=== PATIENT | female | born 1955 | race Caucasian/White ===

== ENCOUNTER 2020-05-08 23:55 | Inpatient (IN) | payer BC ==
[~2020-05-08] VITALS: Ht 157.5 cm; Wt 63.5 kg
[2020-05-09] MEDS ORDERED: DOPAMINE/D5W PMX 400 MG/250 ML ONE
--- NOTE | 2020-05-09 | NUR ---
Code cardiac called @ 2348 Called cardiology @ 2358 Cardiology called back @ [address] Carrasco
[2020-05-09] MEDS ORDERED: ASPIRIN 325 MG TABLET PO STA (00:01)
--- NOTE | 2020-05-09 00:10 | NUR ---
2355. PT ARRIVED TO ED. 2357. 324MG ASA GIVEN PO. EKG COMPLETED. 0005. , TALIA, AT BS. 0010. PT STATED ON DOPAMINE GTT. 0011. DR SHAFER AT BS.
[2020-05-09 00:14] LABS: BASOPHILS % (AUTO) 1 % (0-1); EOSINOPHILS % (AUTO) 1 % (1-7); LYMPHOCYTES % (AUTO) 26 % (22-44); MEAN CORPUSCULAR HEMOGLOBIN 30.4 pg (27.0-34.8); MEAN CORPUSCULAR HGB CONC 33.5 g/dL (32.4-35.8); MEAN PLATELET VOLUME 9.5 fL (7.4-10.4); MONOCYTES % (AUTO) 3 % (2-9); NEUTROPHILS % (AUTO) 69 % (42-75); PLATELET COUNT 195 x10^3/uL (130-400); RED BLOOD COUNT 4.59 x10^6/uL (3.82-5.3); RED CELL DISTRIBUTION WIDTH 12.9 % (9.6-15.2)
[2020-05-09 00:15] LABS: MD NO
[2020-05-09] MEDS ORDERED: HEPARIN 5,000 UNITS/ML, 1ML ONE (00:15)
[2020-05-09] MEDS ORDERED: HEPARIN 25,000 UNITS/250ML PMX 250 ML ONE (00:15)
[2020-05-09] MEDS ORDERED: ONDANSETRON 2MG/ML, 2ML ONE (00:17)
--- NOTE | 2020-05-09 00:18 | NUR ---
CARDS AT BS, VO TO HOLD HEPARIN. PT VOMITING. VO FOR ZOFRAN.
[2020-05-09] MEDS ORDERED: MIDAZOLAM 1 MG/ML, 5ML ONE (00:19)
[2020-05-09] MEDS ORDERED: BIVALIRUDIN 250 MG ONE (00:19)
[2020-05-09] MEDS ORDERED: VERAPAMIL 2.5 MG/ML, 2ML ONE (00:19)
[2020-05-09] MEDS ORDERED: FENTANYL PF 100 MCG/2ML ONE (00:19)
[2020-05-09] MEDS ORDERED: HEPARIN 1,000 UNITS/ML, 10ML ONE (00:20)
[2020-05-09] MEDS ORDERED: LIDOCAINE 2%, 20ML ONE (00:20)
--- NOTE | 2020-05-09 00:20 | NUR ---
HOLDING DOPAMINE GTT PER VO OF CARDIOLOGY.
--- NOTE | 2020-05-09 00:21 | NUR ---
CODE STEMI CANCELLED AT THIS TIME
--- NOTE | 2020-05-09 00:22 | NUR ---
Cancel code cardiac per interventionalist.
[2020-05-09 00:26] LABS: INTERNATIONAL NORMALIZED RATIO 0.95 (0.93-1.1); PROTHROMBIN TIME 10.2 Seconds (9.6-11.5)
[2020-05-09 00:29] LABS: TROPONIN I < 0.015 ng/mL (0.000-0.045)
[2020-05-09] MEDS ORDERED: DOPAMINE/D5W PMX 250 ML IV PRN (00:30)
[2020-05-09] MEDS ORDERED: HEPARIN 5,000 UNITS/ML, 1ML IV PRN (00:30)
[2020-05-09] MEDS ORDERED: BISACODYL 10 MG SUPP PR PRN (00:30)
[2020-05-09] MEDS ORDERED: hydrALAzine 20 MG/ML, 1ML IVPush PRN (00:30)
[2020-05-09] MEDS ORDERED: HEPARIN 25,000 UNITS/250ML PMX 250 ML IV PRN (00:30)
[2020-05-09] MEDS ORDERED: DOCUSATE 100 MG CAPSULE PO PRN (00:30)
[2020-05-09] MEDS ORDERED: PROMETHAZINE 25 MG/ML, 1ML IM PRN (00:30)
[2020-05-09] MEDS ORDERED: morphine SULFATE 10 MG/ML, 1ML IVPush PRN (00:30)
[2020-05-09] MEDS ORDERED: OXYcodone IR 5MG TABLET PO PRN (00:30)
[2020-05-09] MEDS ORDERED: POLYETHYLENE GLYCOL 17 GM PACKET PO PRN (00:30)
[2020-05-09] MEDS ORDERED: ONDANSETRON ODT 4 MG PO PRN (00:30)
[2020-05-09] MEDS ORDERED: HEPARIN 5,000 UNITS/ML, 1ML IV ONE (00:30)
[2020-05-09] MEDS ORDERED: ONDANSETRON 2MG/ML, 2ML IVPush PRN (00:30)
[2020-05-09] MEDS ORDERED: PLEASE ENTER ALLERGIES MC SCH (00:30)
[2020-05-09 00:48] LABS: PARTIAL THROMBOPLASTIN TIME < 23 Seconds (25-31)
--- NOTE | 2020-05-09 00:49 | NUR ---
PT TAKEN TO CT SCAN WITH RN ESCORT. PT TOLERATED SCAN AND CTA. IV SITE INTACT AND SOFT AND FLAT. NO DISTRESS. PT REMAINS ON CR MONITOR THROUGHOUT. PT BACK TO ROOM AFTER CTA, AND PTS AT BEDSIDE.
[2020-05-09] MEDS ORDERED: OMNIPAQUE 350 MG/ML, 100ML BOTTLE ONE (00:53)
[2020-05-09] MEDS ORDERED: ASPIRIN 81 MG TABLET CHEW ONE (00:55)
[2020-05-09 01:01] LABS: FREE T4 (FREE THYROXINE) 0.97 ng/dL (0.76-1.46)
--- NOTE | 2020-05-09 02:00 | NUR ---
REPORT AND CARE CALLED TO FLOOR RN, AND PT TRANSPORTED TO THE ROOM WITHOUT INCIDENT, ON CR MONITOR. PT A&OX4, NO ACUTE DISTRESS, AND NO COMPLAINTS OF CHEST PAIN AT THIS TIME.
[2020-05-09 02:08] VITALS: BP 110/76
[2020-05-09 06:49] LABS: BASOPHILS % (AUTO) 0 % (0-1); EOSINOPHILS % (AUTO) 1 % (1-7); LYMPHOCYTES % (AUTO) 5 % (22-44); MEAN CORPUSCULAR HEMOGLOBIN 30.3 pg (27.0-34.8); MEAN CORPUSCULAR HGB CONC 33.5 g/dL (32.4-35.8); MEAN PLATELET VOLUME 9.1 fL (7.4-10.4); MONOCYTES % (AUTO) 7 % (2-9); NEUTROPHILS % (AUTO) 88 % (42-75); PLATELET COUNT 176 x10^3/uL (130-400); RED BLOOD COUNT 4.46 x10^6/uL (3.82-5.3); RED CELL DISTRIBUTION WIDTH 13.1 % (9.6-15.2)
[2020-05-09 06:50] VITALS: BP 95/61
[2020-05-09 06:50] LABS: MD NO
[2020-05-09 06:55] VITALS: BP 90/56
[2020-05-09 06:59] LABS: ALBUMIN 3.4 g/dL (3.4-5.0); ANION GAP 4 mmol/L (5-15); CALCIUM 8.2 mg/dL (8.5-10.1); CHLORIDE 106 mmol/L (98-107)
[2020-05-09 07:02] LABS: ALANINE AMINOTRANSFERASE 19 U/L (12-78); ALKALINE PHOSPHATASE 49 U/L (45-117); BILIRUBIN,TOTAL 0.5 mg/dL (0.2-1.0); CHOL/HDL RATIO 1.6; CHOLESTEROL, TOTAL 174 mg/dL (140-239); CREATININE 0.94 mg/dL (0.55-1.02); HDL CHOL % 61 % (28-40); HDL CHOLESTEROL (DIRECT) 106 mg/dL (40-60); LDL CHOLESTEROL,CALCULATED 63 mg/dL (54-169); LDL/HDL RATIO 0.6 (0.5-3.0); TOTAL PROTEIN 6.2 g/dL (6.4-8.2); TRIGLYCERIDES 24 mg/dL (50-200); VLDL CHOLESTEROL 5 mg/dL (0-25)
[2020-05-09 10:08] LABS: TROPONIN I < 0.015 ng/mL (0.000-0.045)
[2020-05-09] MEDS: D5%-0.45NACL+KCL 20MEQ 1,000 ML IV SCH ×2 (11:05→20:28)
[2020-05-09 13:44] VITALS: BP 96/65
[2020-05-09] MEDS ORDERED: IBUPROFEN 200 MG TABLET PO PRN (16:30)
[2020-05-09] MEDS ORDERED: ASA/APAP/ CAFFEINE TABLET PO PRN (16:30)
[2020-05-09] MEDS ORDERED: KETOROLAC 30 MG/1 ML IVPush PRN (19:00)
[2020-05-09 19:35] VITALS: BP 120/77
[2020-05-10 01:41] VITALS: BP 118/76
[2020-05-10] MEDS: D5%-0.45NACL+KCL 20MEQ 1,000 ML IV SCH (04:30)
[2020-05-10 07:00] VITALS: BP 101/65
[2020-05-10] MEDS ORDERED: REGADENOSON 0.4 MG/5 ML SYRINGE ONE (08:10)
[2020-05-10 13:20] VITALS: BP 114/76
[2020-05-10] MEDS ORDERED: NITR0.6T4 SL (15:38)
[2020-05-10] MEDS ORDERED: ASPI81TA45 PO (15:38)
[2020-05-10 15:49] VITALS: BP 131/82
[2020-05-10 15:50] VITALS: BP 136/86
[2020-05-10 15:52] VITALS: BP 126/90
== END 2020-05-10 17:00 | disposition home or self-care (01) | DRG 313 ==
LOC: ED 05-09 00:25 → EDIP 05-09 00:50 → 5SO 05-09 01:58 → DCLOUNGE 05-10 16:45
PROVIDERS: ADMIT Internal Medicine; ATTEND Internal Medicine
DX: R07.89 Other chest pain (principal); I47.1 Supraventricular tachycardia; R55 Syncope and collapse; E02 Subclinical iodine-deficiency hypothyroidism
CPT/HCPCS: 36415; 71045; 71275; 74175; 78452; 80047; 80053; 80061; 83036; 83735; 84100; 84439; 84443; 84484; 85025; 85520; 85610; 85730; 93005; 93017; 93306; 93356; 96374; G0378; J0583; J1265; J1644; J1885; J2250; J2785; J3010; Q9967; A9502; J3480